=== PATIENT | female | born 1960 | race African-American/Black ===

== ENCOUNTER 2024-05-26 12:12 | Emergency (ER) | payer OTHER ==
[~2024-05-26] VITALS: Ht 167.6 cm; Wt 84.6 kg
[2024-05-26 13:15] LABS: Basophils # (auto) 0 10 ^3/uL (0-0.2); Basophils % (auto) 0.6 % (0.0-2.0); Eosinophils # (auto) 0 10 ^3/uL (0-0.8); Eosinophils % (auto) 0.5 % (0.0-7.0); Hematocrit 38.2 % (36.0-46.0); Hemoglobin 13.2 g/dL (12.2-16.2); Lymphocytes # (auto) 1.3 10 ^3/uL (0.4-5.4); Lymphocytes % (auto) 20.3 % (10.0-50.0); Mean Corpuscular Hemoglobin 30.9 pg (28.0-32.0); Mean Corpuscular Hgb Conc. 34.4 g/dL (32.0-36.0); Mean Corpuscular Volume 89.7 fL (80.0-100.0); Monocytes # (auto) 0.3 10 ^3/uL (0-1.3); Monocytes % (auto) 5.5 % (0.0-12.0); Neutrophils # (auto) 4.6 10 ^3/uL (1.6-8.6); Neutrophils % (auto) 73.1 % (37.0-80.0); Platelet Count (auto) 163 10^3/uL (140-450); Red Blood Cells 4.26 10^6/uL (4.0-5.20); White Blood Cell 6.3 10^3/uL (4.4-10.8)
[2024-05-26 13:19] LABS: Urine Bacteria None Seen /hpf (None Seen)
[2024-05-26 13:20] LABS: Chloride 111 mmol/L (98-107); Sodium 142 mmol/L (136-145)
[2024-05-26 13:24] LABS: Calcium 10.1 mg/dL (8.7-10.4)
[2024-05-26 13:29] LABS: BUN/Creatinine Ratio 11.2 (10.0-20.0); Blood Alcohol < 3.0 mg/dL (<10); Blood Urea Nitrogen 12 mg/dL (9-23); Glucose 87 mg/dL (74-106)
[2024-05-26 13:48] LABS: Urine Blood Negative /uL (Negative); Urine Clarity Clear (Clear); Urine Color Light-Yellow (Yellow); Urine Protein, UAD Negative (Negative); Urine Specific Gravity 1.024 (1.001-1.035); Urine Urobilinogen Normal (Negative); Urine WBC 8 /hpf (0 - 5); Urine pH 5.5 (5.0-9.0)
[2024-05-26 13:52] LABS: Anion Gap 7 (5-15); Carbon Dioxide 24 mmol/L (20-31)
[2024-05-26 18:13] VITALS: BP 140/82; PULSE 80; RESP 17; TEMP 98.1; O2SAT 96
== END 2024-05-26 18:30 | disposition short-term general hospital (02) ==
LOC: ER 12:12
DX: S00.211A Abrasion of right eyelid and periocular area, initial encounter (principal); N39.0 Urinary tract infection, site not specified; F45.8 Other somatoform disorders; R53.1 Weakness; G90.9 Disorder of the autonomic nervous system, unspecified; E78.5 Hyperlipidemia, unspecified; Z90.49 Acquired absence of other specified parts of digestive tract; W18.09XA Striking against other object with subsequent fall, initial encounter; Y93.89 Activity, other specified; Y92.89 Other specified places as the place of occurrence of the external cause; Y99.8 Other external cause status
CPT/HCPCS: 36415; 70450; 80048; 80320; 81001; 82962; 85025; 93005